=== PATIENT | male | born 1980 | race Two or more races ===

== ENCOUNTER 2020-12-03 18:15 | Emergency (ER) | payer MEDICAID ==
[~2020-12-03] VITALS: Ht 167.6 cm; Wt 68.2 kg
[2020-12-03] MEDS ORDERED: KETOROLAC TROMETHAMINE 30 MG/ML VIAL IM ONE (19:15)
[2020-12-03 21:00] VITALS: BP 121/77
== END 2020-12-03 21:00 | disposition home or self-care (01) ==
LOC: EMS 18:27
DX: S42.031A Displaced fracture of lateral end of right clavicle, initial encounter for closed fracture (principal); W01.0XXA Fall on same level from slipping, tripping and stumbling without subsequent striking against object, initial encounter; Y93.66 Activity, soccer; Y92.89 Other specified places as the place of occurrence of the external cause; Y99.8 Other external cause status
CPT/HCPCS: 29105; 73000; 73030; 96372; 99284; J1885